=== PATIENT | male | born 1965 | race African-American/Black ===

== ENCOUNTER 2022-05-18 15:42 | Emergency (ER) | payer OTHER ==
[~2022-05-18] VITALS: Ht 167.6 cm; Wt 65.0 kg
[2022-05-18 15:52] VITALS: BP 124/92
[2022-05-18] MEDS ORDERED: IPRATROPIUM BROMIDE (0.02%) 0.5MG/2.5ML NEB HHN STA (18:31)
[2022-05-18] MEDS ORDERED: ALBUTEROL (0.083%) 2.5MG/3ML NEB HHN STA (18:31)
[2022-05-18] MEDS ORDERED: PREDNISONE 20MG TABLET PO STA (18:31)
[2022-05-18] MEDS ORDERED: ALBUTEROL (0.083%) 2.5MG/3ML NEB HHN NR (20:30)
[2022-05-18] MEDS ORDERED: IPRATROPIUM BROMIDE (0.02%) 0.5MG/2.5ML NEB HHN NR (20:30)
[2022-05-18] MEDS ORDERED: P50 PO (20:41)
== END 2022-05-18 20:51 | disposition home or self-care (01) ==
LOC: ER 15:42
DX: J45.901 Unspecified asthma with (acute) exacerbation (principal); J44.9 Chronic obstructive pulmonary disease, unspecified; I10 Essential (primary) hypertension
CPT/HCPCS: 94640; 99283; J7512; Z7610